=== PATIENT | female | born 1990 | race Caucasian/White ===

== ENCOUNTER → 2019-01-11 | Outpatient (CLI) | payer MEDICAID ==
--- NOTE | 2019-01-12 04:21 | US ---
EXAMINATION TYPE: Ultrasound OB <= 14 weeks transvaginal DATE OF EXAM: 01/11/2019 8:53 PM COMPARISON: NONE CLINICAL HISTORY: 28-year-old female Z32.01 Encounter for test. Pelvic pain x 3 weeks. Spot ting. Viability. . EXAM PERFORMED: Transvaginal (TV) and Transabdominal (TA) FINDINGS: EXAM MEASUREMENTS: GESTATIONAL AGE / DATING Physician Established: Not yet established Dates by LMP: (8 weeks/3 days) EDC: 08/20/2019 Dates by First Scan: This is first scan Dates by Current Scan for: (6 weeks/0 days) EDC: 09/06/2019 MATERNAL ANATOMY Uterus: 9.3 x 6.6 x 5.8 cm. Anteverted. Right Ovary: 3.0 x 2.0 x 2.2 cm. Follicles seen. Left Ovary: not seen Post CDS / Adnexa: appear wnl Presence of free fluid: none seen Presence of corpus luteal cyst: not seen Presence of subchorionic bleed: Hypoechoic area seen adjacent to the gestational sac measurin.5 x 1.6 x 0.9 cm. GESTATION / SURVEY Possible CRL: 0.32 cm. (6 weeks/0 days) MSD: 1.64 cm. (6 weeks/0 days) Yolk Sac (normal less than 6mm): 4.9 mm Heart Rate: Unable to detect heart tones at this time, possibly due to early gestation IUP: Gestational sac and possible pole seen at this time. Date of LMP: 11/13/2018 IMPRESSION: 1. Intrauterine with yolk sac and suspected small pole though no cardiac activity is identified at this time. Measurements suggest 6 week 0 day gestation, 2 weeks smaller than expected b y LMP. 2. Appropriate ultrasound follow-up (consider one week) is recommended to ensure appropriate growth a nd viability. 3. [id number]-[id number] sized 1.6 cm perigestational bleed. 4. Subsequently, complete survey recommended at 18-20 weeks.
== END | disposition home or self-care (01) ==
LOC: RADUSMAIN 17:59
PROVIDERS: ATTEND Family Medicine
DX: O46.91 Antepartum hemorrhage, unspecified, first trimester (principal); Z3A.01 Less than 8 weeks gestation of pregnancy
CPT/HCPCS: 76801; 76817

== ENCOUNTER 2020-01-06 08:18 | Inpatient (IN) | payer MEDICAID ==
[~2020-01-06 08:18] MED LIST: ROPIVACAINE 5MG/ML 20ML VIAL ONE; SODIUM CHLORIDE 0.9% 100 ML BAG ONE; fentaNYL (PF) 50 MCG/ML 5 ML AMP ONE
[2020-01-06 08:48] LABS: Appearance,Urine Clear (Clear); Bilirubin,Urine Negative (Negative); Blood,Urine Negative (Negative); Color,Urine Light Yellow; Glucose,Urine (UA) Negative (Negative); Ketones,Urine Negative (Negative); Leukocyte Esterase,Urine Negative (Negative); Nitrite,Urine Negative (Negative); Protein,Urine Negative (Negative); Specific Gravity,Urine 1.007 (1.001-1.035); Urobilinogen,Urine <2.0 mg/dL (<2.0)
[2020-01-06 08:55] LABS: Protein/Creatinine Ratio,Urine 0.24
[2020-01-06 09:02] LABS: ALT 8 U/L (4-34); AST 18 U/L (14-36); African American GFR (CKD) >90 (>60 ml/min/1.73 sqM); Blood Urea Nitrogen 6 mg/dL (7-17); LDH 322 U/L (313-618); Non-African American GFR(CKD) >90 (>60 ml/min/1.73 sqM); Uric Acid 4.8 mg/dL (3.7-7.4)
[2020-01-06 09:03] LABS: Basophils % (A) 0 %; Eosinophils % (A) 0 %; HCT 37.4 % (34.0-46.0); HGB 11.2 gm/dL (11.4-16.0); Hypochromasia Moderate; Lymphocytes % (A) 17 %; MCH 25.4 pg (25.0-35.0); MCHC 29.8 g/dL (31.0-37.0); MCV 85.4 fL (80.0-100.0); Mean Platelet Volume 9.8; Monocytes # (A) 0.4 k/uL (0-1.0); Monocytes % (A) 4 %; Neutrophils # (A) 9.2 k/uL (1.3-7.7); Neutrophils % (A) 78 %; Platelet Count 254 k/uL (150-450); RBC 4.39 m/uL (3.80-5.40); RDW 15.5 % (11.5-15.5); WBC 11.8 k/uL (3.8-10.6)
[2020-01-06] MEDS ORDERED: LIDOCAINE 0.5% (PF) 5 MG/ML (50 ML SDV) SQ PRN (09:31)
[2020-01-06] MEDS ORDERED: CARBOPROST TROMETHAMINE 250 MCG/ML 1 ML AMP IM PRN (09:31)
[2020-01-06] MEDS ORDERED: METHYLERGONOVINE 0.2 MG/ML 1 ML AMP IM PRN (09:31)
[2020-01-06] MEDS ORDERED: AMPICILLIN 2,000 MG in SODIUM CHLORIDE 0.9% 100 ML IVPB STA (09:31)
[2020-01-06] MEDS ORDERED: TERBUTALINE 1 MG/ML VIAL SQ PRN (09:31)
[2020-01-06] MEDS ORDERED: OXYTOCIN 10 UNIT/ML 1 ML VIAL IM PRN (09:31)
[2020-01-06] MEDS: LACTATED RINGERS 1,000 ML IV SCH ×2 (10:07→14:10)
[2020-01-06 10:31] LABS: Amphetamine Screen,Urine Not Detected (NotDetected); Barbiturate Screen,Urine Not Detected (NotDetected); Benzodiazepines Screen,Urine Not Detected (NotDetected); Cocaine Screen,Urine Not Detected (NotDetected); Methadone Screen, Urine Not Detected (NotDetected); Opiate Screen,Urine Not Detected (NotDetected); Oxycodone Screen, Urine Not Detected (NotDetected); Phencyclidine Screen,Urine Not Detected (NotDetected); Tricyclic Antidepressant,Urine Not Detected (NotDetected); Urn Cannabinoid Scrn Not Detected (NotDetected)
[2020-01-06] MEDS ORDERED: ROPIVACAINE 5MG/ML 20ML VIAL ONE (10:54)
[2020-01-06] MEDS ORDERED: SODIUM CHLORIDE 0.9% 100 ML BAG ONE (10:54)
[2020-01-06] MEDS ORDERED: fentaNYL (PF) 50 MCG/ML 5 ML AMP ONE (10:54)
--- NOTE | 2020-01-06 11:07 | P.HPOB ---
History of Present Illness H&P Date: 01/06/20 Chief Complaint: Contractions, no care locally This patient is a 29-year-old 3 para 1 female estimated date of confinement based on patient's acquired records is 12/30/2019 estimated gestational age 41-0/7 weeks. Patient's history is such that she states she is getting care by a nurse system sales consultant in [place]. Per report from the nurse, patient does not like any of the physicians in [place] therefore intentions were to deliver at a facility elsewhere, in [place]. Patient began having contractions this morning and felt that she could not make it all the way to [place] so came to [facility] labor and delivery for evaluation. I did review the records that we were able to get from her nurse system sales consultant. It appears that her first visit was at approximately 11 weeks and she did have an ultrasound which showed estimated date of confinement of December 25, however they kept her original EDC of December 29. Patient has had a normal Glucola. It appears her anatomy ultrasound was normal. does appear to be complicated by anemia. Most recent ultrasound done per the records were is done on the showed a estimated weight at the 81st percentile with normal fluid index. There is no stated estimated weight but based on this calculation be approximately 8 lbs. 4 oz. Patient states that she was induced at 39 weeks with her first secondary to a 2 vessel cord. She indicates that this labor and delivery was uncomplicated. Past medical history appears unremarkable. On initial presentation she had 1 elevated blood pressure however preeclampsia labs were negative. Review of the records does not show any issues with hypertension. Review of Systems Genitourinary: Reports Menstruation: Reports amenorrhea Past Medical History History of Any Multi-Drug Resistant Organisms: None Reported Past Surgical History: No Surgical Hx Reported Past Anesthesia/Blood Transfusion Reactions: No Reported Reaction Past Psychological History: No Psychological Hx Reported Smoking Status: Never smoker Past Alcohol Use History: None Reported Past Drug Use History: None Reported Medications and Allergies Home Medications Medication Instructions Recorded Confirmed Type Ferrous Sulfate [Iron] 325 mg PO DAILY 01/06/20 01/06/20 History Pnv No.95/Ferrous Fum/Folic AC 1 each PO DAILY 01/06/20 01/06/20 History [ Multivitamin Tablet] Allergies Allergy/AdvReac Type Severity Reaction Status Date / Time No Known Allergies Allergy Verified 01/06/20 08:20 Exam Intake and Output 01/05/20 01/06/20 01/06/20 22:59 06:59 14:59 Other: Weight 90.718 kg - OBG Physical Exam Abdomen: bowel sounds normal, no diffuse tenderness, no bruit present, no guarding noted, no hepatomegaly, no splenomegaly, no mass Vulva: both: normal Vagina: normal moisture, no discharge Cervix: no lesion (Cervix is 390 and -2 station.), no discharge Uterus: enlarged Results blood work shows she is A positive, rubella immune, hepatitis B was negative, HIV is nonreactive, Glucola was 130. records indicate she had an ultrasound 3 days ago that placed the baby at the 81st percentile. Group B strep was positive Result Diagrams: 01/06/20 08:42 01/06/20 10:04 Abnormal Lab Results - Last 24 Hours (Table) 01/06/20 01/06/20 Range/Units 08:42 08:42 WBC 11.8 H (3.8-10.6) k/uL Hgb 11.2 L (11.4-16.0) gm/dL MCHC 29.8 L (31.0-37.0) g/dL Neutrophils # 9.2 H (1.3-7.7) k/uL BUN 6 L (7-17) mg/dL Assessment and Plan Assessment: This is a 29-year-old 3 para 1 female 41 weeks gestation with care elsewhere that presents to this hospital with complaints of contractions found to be in early labor. I did do preeclampsia blood work because initial blood pressure was mildly elevated was negative and appears this blood pressure was just from pain of contractions. heart tones are category 1. I did offer the patient to go to her planned delivery site since it is only 45 minutes from here and she appeared to be only in early labor however she did not feel comfortable traveling. Therefore, patient is admitted for labor. Due to positive group B strep culture should be given some IV antibiotics. On artificial rupture membranes she did have thick meconium-stained fluid and therefore pediatricians were alerted and I discussed this in detail with the patient and her . This time we still anticipate a vaginal delivery. Plan of care and all the patient's questions were answered. (1) 41 weeks gestation of Current Visit: Yes Status: Acute Code(s): Z3A.41 - 41 WEEKS GESTATION OF SNOMED Code(s): 56759950 (2) Normal labor Current Visit: Yes Status: Acute Code(s): O80 - ENCOUNTER FOR FULL-TERM UNCOMPLICATED DELIVERY; Z37.9 - OUTCOME OF DELIVERY, UNSPECIFIED SNOMED Code(s): 90711450 (3) Group B streptococcal carriage complicating Current Visit: Yes Status: Acute Code(s): O99.820 - STREPTOCOCCUS B CARRIER STATE COMPLICATING SNOMED Code(s): 887535175255715 (4) Thick meconium stained amniotic fluid Current Visit: Yes Status: Acute Code(s): P96.83 - MECONIUM STAINING SNOMED Code(s): 360755783
[2020-01-06] MEDS ORDERED: AMPICILLIN 1,000 MG in SODIUM CHLORIDE 0.9% 50 ML IVPB SCH (13:32)
--- NOTE | 2020-01-06 15:55 | P.PROBDLV ---
Vaginal Delivery Note - . Vaginal Delivery Note: Normal spontaneous vaginal delivery viable male infant Apgars 6 and 8 at 1514 hrs. Please see dictated H&P for intimate details of this patient's admission. In brief summary this is a 29-year-old 3 para 1 female 41-0/7 weeks gestation who presented to labor and delivery with complaints of contractions. Patient's care was elsewhere we were able to obtain these records. History of positive group B strep and was given IV antibiotics in labor. Katy ent was initially 2 cm dilated and then dilated to 3 cm dilated she elected to stay here for labor. Artificial rupture membranes was done for thick meconium- stained fluid. heart tones were category 1. Labor progresses and she did request an epidural. She did get some transient hypotension with the epidural but this is corrected with ephedrine and IV fluids. Patient continues to progress and gets to complete. Patient pushes for approximately 30 minutes. The last few pushes she does have some bradycardia and she is encouraged to breathe. At this point it is evident that episiotomy is necessary and a midline episiotomy is made. With good maternal effort we then have deliver the 's head in the right occiput anterior presentation. Patient's somewhat out of control at this time but was encouraged to breathe. I attempted bulb suction. Product Planner is present for delivery due to thick meconium. There is a very tight nuchal cord which is unable to reduce and therefore with gentle downward traction we deliver the anterior and posterior shoulder and rest this 's body and the umbilical cord was then unwrapped. This is a vigorous viable male Apgars are 9 and 9 delivery time is 1514 hrs. does appear slightly depressed but does have spontaneous respiration and cry is handed off to the nutrient management specialist after cord is doubly clamped and cut. The placenta is then spontaneously delivered intact. It is dark meconium-stained consistent with chronic condition. Inspection of perineum shows a third-degree laceration. The rectal mucosa appears intact. This time I bring the Gelpi is then to the field. I infiltrate the perineum and rectal area with lidocaine. Using Allis clamps I grasped the rectal sphincter capsule's. Using interrupted 3-0 Vicryl times for it is reapproximated. Rectal sphincter [place] to be intact and very well reapproximated. This time the rest of the second-degree laceration repair with 3-0 Vicryl usual fashion. Final examination shows no defects in good reapproximation. Estimated blood loss is 200 mL. There are no complications. All counts are correct 3. Infant will be taken special care for observation. Mother is in birthing suite in satisfactory condition
[2020-01-06] MEDS ORDERED: diphenhydrAMINE 50 MG/ML 1 ML VIAL IVP PRN (15:58)
[2020-01-06] MEDS ORDERED: SIMETHICONE 80 MG CHEWABLE PO PRN (15:58)
[2020-01-06] MEDS ORDERED: HYDROCORTISONE 2.5% RECTAL CREAM 30 GM TUBE RECTAL PRN (15:58)
[2020-01-06] MEDS ORDERED: diphenhydrAMINE 25 MG CAP PO PRN (15:58)
[2020-01-06] MEDS ORDERED: BENZOCAINE/MENTHOL SPRAY 1 GM/SPRAY AEROSOL TOPICAL PRN (15:58)
[2020-01-06] MEDS ORDERED: LANOLIN CREAM 5 GM TUBE TOPICAL PRN (15:58)
[2020-01-06] MEDS ORDERED: ZOLPIDEM 5 MG TAB PO PRN (15:58)
[2020-01-06] MEDS ORDERED: OXYTOCIN 20 UNITS/1000 ML NS 1,000 ML IV SCH (16:00)
--- NOTE | 2020-01-06 16:02 | P.MSEPDOC ---
Presenting Problems - Arrival Data Date of Arrival on Unit: 01/06/20 Time of Arrival on Unit: 09:30 Mode of Transport: Ambulatory - Complaint OB-Reason for Admission/Chief Complaint: Possible Onset of Labor Medical History - Information : 3 Para: 1 Term: 1 : 0 Abortions: Spontaneous or Elective: 1 Number of Living Children: 1 - Gestational Age Gestational Age by KEYON (wks/days): 41 Weeks and 0 Days Review of Systems - Review of Systems Constitutional: No problems Breast: No problems ENT: No problems Cardiovascular: No problems Respiratory: No problems Gastrointestinal: No problems Genitourinary: No problems Musculoskeletal: No problems Neurological: No problems Skin: No problems Vital Signs - Temperature Temperature: 96.3 F Temperature Source: Tympanic - Pulse Right Brachial Pulse Rate: 79 Pulse Assessment Method: Auscultation - Respirations Respiratory Rate: 16 Oxygen Delivery Method: Room Air - Blood Pressure Right Arm Blood Pressure: 145/79 Blood Pressure Mean: 101 Blood Pressure Source: Automatic Cuff Medical Screen Scoring (Pre) - Cervical Exam Dilation: 1-3 cm = 1 Effacement: More than 50% = 2 Membranes: Intact - Uterine Contractions Frequency: > or = 36 weeks =2 Duration: > 40 seconds = 2 Intensity: Contraction palpated strong = 1 - Maternal Vital Signs Maternal Temperature: N/A Maternal Blood Pressure: N/A Signs of Preeclampsia: N/A - Assessment - Baby A Baseline FHR: 135 Heart Rate - NICHD Category: Category I (Normal) = 0 NST: Reactive Position: N/A Station: N/A - Total Score - Baby A Total Score - Baby A: 8 - Total Score - Baby B Total Score - Baby B: 8 - Total Score - Baby C Total Score - Baby C: 8 - Level of Risk - Baby A Level of Risk - Baby A: Medium (6-9) - Level of Risk - Baby B Level of Risk - Baby B: Medium (6-9) - Level of Risk - Baby C Level of Risk - Baby C: Medium (6-9) Physician Notification (Pre) - Physician Notified Physician Notified Date: 01/06/20 Physician Notified Time: 09:30 New Order Received: Yes - Notification Comment Comment: admit for labor Disposition - Disposition OB Disposition: Admit I agree with the RN Medical Screening Exam: Yes Risk & Benefit of care provided described in d/c instruction: Yes Diagnosis: ENCOUNTER FOR FULL-TERM UNCOMPLICATED DELIVERY
[2020-01-06] MEDS: IBUPROFEN 600 MG TAB PO PRN ×2 (16:13→23:30)
[2020-01-06] MEDS: SENNOSIDES-DOCUSATE SODIUM 1 EACH TAB PO SCH (20:09)
[2020-01-06] MEDS: ACETAMINOPHEN TAB 325 MG TAB PO PRN (20:09)
[2020-01-06 22:00] LABS: Hepatitis B Surface Antigen Non-Reactive (Non-Reactive)
[2020-01-07] MEDS: IBUPROFEN 600 MG TAB PO PRN ×3 (04:56→17:49)
--- NOTE | 2020-01-07 06:52 | P.PNOBGVD ---
Subjective - Subjective Patient reports: Reports appetite normal, Reports voiding normally, Reports pain well controlled, Reports ambulating normally : doing well Objective - Latest Vital Signs Latest vital signs: Vital Signs Temp Pulse Resp BP 01/07/20 04:00 98.3 F 87 16 142/62 01/07/20 00:00 98.5 F 84 16 120/68 01/06/20 20:00 98.3 F 86 16 125/71 01/06/20 17:30 98.5 F 83 16 115/69 01/06/20 17:00 98.4 F 72 14 114/57 01/06/20 16:30 86 14 118/63 01/06/20 16:15 94 16 115/58 01/06/20 16:02 96.3 F L 79 16 145/79 01/06/20 16:00 93 16 127/64 01/06/20 15:45 97.7 F 113 H 16 141/66 01/06/20 15:30 110 H 16 137/67 01/06/20 12:25 96.3 F L 79 16 145/79 01/06/20 09:30 96.3 F L 79 16 145/79 Intake and Output 01/06/20 01/06/20 01/07/20 14:59 22:59 06:59 Other: # Voids 1 2 Weight 90.718 kg - Exam Lungs: bilateral: normal Chest: Normal S1, Normal S2 Extremities: Present: normal Abdomen: Present: normal appearance, soft Uterus: Present: normal, firm - Labs Labs: Abnormal Lab Results - Last 24 Hours (Table) 01/06/20 01/06/20 Range/Units 08:42 08:42 WBC 11.8 H (3.8-10.6) k/uL Hgb 11.2 L (11.4-16.0) gm/dL MCHC 29.8 L (31.0-37.0) g/dL Neutrophils # 9.2 H (1.3-7.7) k/uL BUN 6 L (7-17) mg/dL Assessment and Plan Assessment: day #1. Patient is resting without complaints. Vital signs are stable she's afebrile. Uterus is firm nontender and she is having normal lochia. My impression is a normal course. Plan is to continue routine care and most likely discharge home tomorrow. (1) 41 weeks gestation of Current Visit: Yes Status: Acute Code(s): Z3A.41 - 41 WEEKS GESTATION OF SNOMED Code(s): 47115975 (2) Normal labor Current Visit: Yes Status: Acute Code(s): O80 - ENCOUNTER FOR FULL-TERM UNCOMPLICATED DELIVERY; Z37.9 - OUTCOME OF DELIVERY, UNSPECIFIED SNOMED Code(s): 51700391 (3) Group B streptococcal carriage complicating Current Visit: Yes Status: Acute Code(s): O99.820 - STREPTOCOCCUS B CARRIER STATE COMPLICATING SNOMED Code(s): 782368900120562 (4) Thick meconium stained amniotic fluid Current Visit: Yes Status: Acute Code(s): P96.83 - MECONIUM STAINING SNOMED Code(s): 085511226
[2020-01-07] MEDS: SENNOSIDES-DOCUSATE SODIUM 1 EACH TAB PO SCH ×2 (08:20→21:17)
[2020-01-07] MEDS: ACETAMINOPHEN TAB 325 MG TAB PO PRN ×3 (09:07→21:17)
[2020-01-08] MEDS: IBUPROFEN 600 MG TAB PO PRN ×3 (04:45→20:17)
--- NOTE | 2020-01-08 06:34 | P.PNOBGVD ---
Subjective - Subjective Patient reports: Reports appetite normal, Reports voiding normally, Reports pain well controlled, Reports ambulating normally : doing well Objective - Latest Vital Signs Latest vital signs: Vital Signs Temp Pulse Resp BP 01/08/20 04:00 98.1 F 81 18 134/82 01/08/20 00:00 98.5 F 72 18 122/73 01/07/20 20:00 98.5 F 78 18 120/77 01/07/20 16:00 99.4 F 84 16 128/82 01/07/20 12:00 98.7 F 71 16 126/71 01/07/20 08:00 98.6 F 16 122/74 Intake and Output 01/07/20 01/07/20 01/08/20 14:59 22:59 06:59 Intake Total 1500 Balance 1500 Intake: Oral 1500 Other: # Voids 2 2 1 - Exam Lungs: bilateral: normal Chest: Normal S1, Normal S2 Extremities: Present: normal Abdomen: Present: normal appearance, soft Uterus: Present: normal, firm Assessment and Plan Assessment: day #2. Patient is resting without complaints. Vital signs are stable and she is afebrile. Uterus is firm nontender she's having normal lochia. My impression this is a normal course. Plan is to continue routine care discharge home later today (1) 41 weeks gestation of Current Visit: Yes Status: Acute Code(s): Z3A.41 - 41 WEEKS GESTATION OF SNOMED Code(s): 39710221 (2) Normal labor Current Visit: Yes Status: Acute Code(s): O80 - ENCOUNTER FOR FULL-TERM UNCOMPLICATED DELIVERY; Z37.9 - OUTCOME OF DELIVERY, UNSPECIFIED SNOMED Code(s): 19171155 (3) Group B streptococcal carriage complicating Current Visit: Yes Status: Acute Code(s): O99.820 - STREPTOCOCCUS B CARRIER STATE COMPLICATING SNOMED Code(s): 983666598213130 (4) Thick meconium stained amniotic fluid Current Visit: Yes Status: Acute Code(s): P96.83 - MECONIUM STAINING SNOMED Code(s): 412539576
--- NOTE | 2020-01-08 06:38 | P.DS ---
Providers Date of admission: 01/06/20 09:37 Expected date of discharge: 01/08/20 Attending physician: Manuel Peterson Primary care physician: Stated None - Discharge Diagnosis(es) (1) 41 weeks gestation of Current Visit: Yes Status: Acute (2) Normal labor Current Visit: Yes Status: Acute (3) Group B streptococcal carriage complicating Current Visit: Yes Status: Acute (4) Thick meconium stained amniotic fluid Current Visit: Yes Status: Acute Hospital Course: Please see dictated H&P for intimate details of this patient's admission. Brief summary this is a 29-year-old 3 para 1 female 41 weeks gestation admitted to this hospital with complaints of contractions found to be in early labor. Patient's had care elsewhere. Patient's substance was on have a vaginal delivery viable male . Please see dictated delivery note. day #2 patient's felt be stable for discharge home follow up with her primary provider in about 6 weeks. Procedures: Normal spontaneous vaginal delivery Patient Condition at Discharge: Good Plan - Discharge Summary New Discharge Prescriptions: New Ibuprofen [Motrin] 600 mg PO Q6HR PRN #40 tab PRN Reason: Mild Pain Or Fever >= 100.5 No Action Pnv No.95/Ferrous Fum/Folic AC [ Multivitamin Tablet] 1 each PO DAILY Ferrous Sulfate [Iron] 325 mg PO DAILY Discharge Medication List Ferrous Sulfate [Iron] 325 mg PO DAILY 01/06/20 [History] Pnv No.95/Ferrous Fum/Folic AC [ Multivitamin Tablet] 1 each PO DAILY 01/06/20 [History] Ibuprofen [Motrin] 600 mg PO Q6HR PRN #40 tab 01/08/20 [Rx] Patient Instructions/Handouts: Vaginal Delivery (DC)
[2020-01-08] MEDS: ACETAMINOPHEN TAB 325 MG TAB PO PRN ×2 (08:04→15:57)
[2020-01-08] MEDS: SENNOSIDES-DOCUSATE SODIUM 1 EACH TAB PO SCH ×2 (08:05→20:17)
[2020-01-08 10:11] VITALS: RESP 16
[2020-01-08] MEDS ORDERED: ROPIVACAINE 100 MG, fentaNYL (PF) 200 MCG in SODIUM CHLORIDE 0.9% 76 ML EPIDURAL ONE (11:41)
[2020-01-08 12:50] LABS: HIV 2 AB Non-Reactive (Non-Reactive); HIV AB P24 Non-Reactive (Non-Reactive); HIV P24 AG Non-Reactive (Non-Reactive)
[2020-01-08 16:40] VITALS: BP 103/67; PULSE 76; TEMP 98.3
== END 2020-01-08 21:13 | disposition home or self-care (01) | DRG 768 ==
LOC: FBPOP 08:18 → 4FBP 09:37
PROVIDERS: ADMIT Obstetrics & Gynecology; ATTEND Obstetrics & Gynecology
PROC: 0DQR0ZZ Repair Anal Sphincter, Open Approach (ICD-10-PCS; principal; 2020-01-06)
PROC: 00HU33Z Insertion of Infusion Device into Spinal Canal, Percutaneous Approach (ICD-10-PCS; principal; 2020-01-06)
PROC: 0KQM0ZZ Repair Perineum Muscle, Open Approach (ICD-10-PCS; principal; 2020-01-06)
PROC: 10E0XZZ Delivery of Products of Conception, External Approach (ICD-10-PCS; principal; 2020-01-06)
PROC: 3E0R3BZ Introduction of Anesthetic Agent into Spinal Canal, Percutaneous Approach (ICD-10-PCS; principal; 2020-01-06)
DX: O69.1XX0 Labor and delivery complicated by cord around neck, with compression, not applicable or unspecified (principal); Z37.0 Single live birth; O70.20 Third degree perineal laceration during delivery, unspecified; O77.0 Labor and delivery complicated by meconium in amniotic fluid; O99.824 Streptococcus B carrier state complicating childbirth; Z3A.41 41 weeks gestation of pregnancy; B95.1 Streptococcus, group B, as the cause of diseases classified elsewhere; O76 Abnormality in fetal heart rate and rhythm complicating labor and delivery; O99.02 Anemia complicating childbirth; D64.9 Anemia, unspecified
CPT/HCPCS: 59025; 80306; 81003; 82565; 82570; 82947; 83615; 84156; 84450; 84460; 84520; 84550; 85025; 86762; 86780; 86850; 86900; 86901; 87340; 87390; 88307; 99213